=== PATIENT | male | born 1980 | race Caucasian/White ===

== ENCOUNTER 2018-02-18 20:50 | Observation (INO) | payer OTHER ==
--- NOTE | 2018-02-18 21:42 | XR ---
EXAMINATION TYPE: XR ribs LT w pa chest xray DATE OF EXAM: 02/18/2018 COMPARISON: 01/19/2012 HISTORY: Chest pain left rib pain TECHNIQUE: 5 views FINDINGS: Heart and mediastinum are normal. Lungs are clear of infiltrate. There is no pleural effusi on or pneumothorax. I see no displaced rib fracture. IMPRESSION: Normal chest. No rib fracture seen. Chest is stable compared to old exam.
[2018-02-18] MEDS ORDERED: MORPHINE SULFATE 4 MG/ML SYRINGE IVP STA (23:21)
[2018-02-18] MEDS ORDERED: ONDANSETRON 4 MG/2 ML VIAL IVP STA (23:21)
--- NOTE | 2018-02-19 00:26 | CT ---
EXAMINATION TYPE: CT abdomen pelvis w con DATE OF EXAM: 02/19/2018 COMPARISON: 10/04/2012 HISTORY: left sided abdominal pain after fall. CT DLP: 896.4 mGycm Automated exposure control for dose reduction was used. TECHNIQUE: Helical acquisition of images was performed from the lung bases through the pelvis. CONTRAST: Performed without Oral Contrast and with IV Contrast, patient injected with 100mL mL of Isovue 300. FINDINGS: The lung bases are clear of consolidation. There is no pleural effusion. There is no pericardial effu gabby. Heart size is normal. Liver spleen pancreas gallbladder appear normal. Bile ducts are not dilated. There is no adrenal mass . There is fluid accumulation on the posterior aspect of the lower pole left kidney that measures up to 1 cm in thickness. This has high attenuation consistent with perinephric hemorrhage. There is also s light decreased cortical enhancement of the lower pole of the left kidney. This is consistent with re nal contusion. There is no hydronephrosis. There is no retroperitoneal adenopathy. Ureters are not dilated. Bladder distends smoothly. There is no inguinal hernia. There is no free fluid in the pelvis. There is no intestinal wall thickening. The re are no dilated loops. Appendix appears normal. There is no sign of free air. There is no mesenteri c edema or adenopathy. The visualized ribs appear intact. Lumbar spine is intact. There is no jack gabby fracture. Bony pelvis is intact. IMPRESSION: THERE IS SMALL LEFT-SIDED PERINEPHRIC HEMATOMA WITH CORTICAL CONTUSION ON THE LOWER POLE OF THE LEFT KIDNEY. NO BONY FRACTURE SEEN. NO SIGN OF A RENAL FRACTURE.
[2018-02-19] MEDS ORDERED: SODIUM CHLORIDE 0.9% 1,000 ML IV ONE (00:30)
[2018-02-19] MEDS ORDERED: MORPHINE SULFATE 4 MG/ML SYRINGE IVP STA (01:01)
[2018-02-19 01:08] LABS: Basophils % (A) 0 %; Eosinophils # (A) 0.1 k/uL (0-0.7); Eosinophils % (A) 1 %; HCT 42.8 % (39.0-53.0); Lymphocytes % (A) 23 %; MCH 29.6 pg (25.0-35.0); MCHC 32.7 g/dL (31.0-37.0); MCV 90.6 fL (80.0-100.0); Mean Platelet Volume 7.7; Monocytes # (A) 0.5 k/uL (0-1.0); Monocytes % (A) 6 %; Neutrophils # (A) 5.9 k/uL (1.3-7.7); Neutrophils % (A) 68 %; Platelet Count 198 k/uL (150-450); RBC 4.72 m/uL (4.30-5.90); RDW 12.5 % (11.5-15.5); WBC 8.7 k/uL (3.8-10.6)
[2018-02-19 01:14] LABS: Appearance,Urine Clear (Clear); Bilirubin,Urine Negative (Negative); Blood,Urine Small (Negative); Color,Urine Light Yellow; Glucose,Urine (UA) Negative (Negative); Ketones,Urine Negative (Negative); Leukocyte Esterase,Urine Negative (Negative); Mucus,Urine Rare /hpf; Nitrite,Urine Negative (Negative); PH, Urine 6.5 (5.0-8.0); Protein,Urine Negative (Negative); RBC,Urine 9 /hpf (0-5); Specific Gravity,Urine 1.025 (1.001-1.035); Urobilinogen,Urine <2.0 mg/dL (<2.0); WBC,Urine 2 /hpf (0-5)
[2018-02-19 01:17] LABS: ALT 62 U/L (21-72); AST 39 U/L (17-59); Albumin 4.4 g/dL (3.5-5.0); Alkaline Phosphatase 71 U/L (38-126); Anion Gap 9 mmol/L; Blood Urea Nitrogen 22 mg/dL (9-20); Calcium 9.9 mg/dL (8.4-10.2); Carbon Dioxide 27 mmol/L (22-30); Chloride 103 mmol/L (98-107); Glucose 99 mg/dL (74-99); Potassium 4.8 mmol/L (3.5-5.1); Sodium 139 mmol/L (137-145); Total Bilirubin 0.6 mg/dL (0.2-1.3); Total Protein 7.3 g/dL (6.3-8.2)
[2018-02-19 01:18] LABS: Partial Thromboplastin Time 23.2 sec (22.0-30.0); Prothrombin Time 10.3 sec (9.0-12.0)
--- NOTE | 2018-02-19 01:43 | ED ---
Fall HPI - General Source: patient Mode of arrival: ambulatory <Anna Johnson - Last Filed: 02/19/18 01:57> <Jerel Teran - Last Filed: 02/19/18 08:10> - General Chief Complaint: Fall Stated Complaint: Fall, rib injury Time Seen by Provider: 02/18/18 22:22 - History of Present Illness Initial Comments: 37-year-old male patient presents to the emergency department today for evaluation of left-sided rib and abdominal pain. Patient states that about an hour prior to arrival he was jumping a fence when he fell striking his left side on the top of the fence posts. Patient states that since then he has been having pain to the left abdomen and flank. States his been having pain to the left lower ribs. Patient states it hurts to take a deep breath. Patient states that he has been feeling a cramping spasm type pain in the left side. He denies any cough or hemoptysis. Denies any hematuria, dysuria, urinary frequency, urinary urgency. He denies any abdominal pain, nausea, or vomiting. Denies hitting his head or losing consciousness. Denies any neck or back pain. Patient denies any headache, chest pain, dizziness, weakness, or difficulties with bowel movements or urination. (Anna Johnson) - Related Data Home Medications Medication Instructions Recorded Confirmed No Known Home Medications 02/18/18 02/19/18 Allergies Allergy/AdvReac Type Severity Reaction Status Date / Time Penicillins Allergy Rash/Hives Verified 02/19/18 03:37 Review of Systems ROS Other: All systems not noted in ROS Statement are negative. <Anna Johnson - Last Filed: 02/19/18 01:57> ROS Other: All systems not noted in ROS Statement are negative. <Jerel Teran - Last Filed: 02/19/18 08:10> ROS Statement: Those systems with pertinent positive or pertinent negative responses have been documented in the HPI. Past Medical History Past Medical History: No Reported History History of Any Multi-Drug Resistant Organisms: None Reported Additional Past Surgical History / Comment(s): right shoulder Past Psychological History: No Psychological Hx Reported Smoking Status: Current some day smoker Past Alcohol Use History: Occasional Past Drug Use History: None Reported <Anna Johnson - Last Filed: 02/19/18 01:57> General Exam Limitations: no limitations General appearance: alert, in no apparent distress, other (This is a well- developed, well-nourished adult male patient in no acute distress. Vital signs upon presentation are temperature 98.8F, pulse 70, respirations 18, blood pressure 146/95, pulse ox 100% on room air.) Eye exam: Present: normal appearance, PERRL, EOMI. Absent: scleral icterus, conjunctival injection, periorbital swelling ENT exam: Present: normal exam, normal oropharynx, mucous membranes moist Respiratory exam: Present: normal lung sounds bilaterally. Absent: respiratory distress, wheezes, rales, rhonchi, stridor Cardiovascular Exam: Present: regular rate, normal rhythm, normal heart sounds. Absent: systolic murmur, diastolic murmur, rubs, gallop, clicks GI/Abdominal exam: Present: soft, tenderness (Left upper quadrant tenderness. Left flank tenderness.), normal bowel sounds. Absent: distended, guarding, rebound, rigid Back exam: Present: normal inspection, CVA tenderness (L), other (Patient has superficial abrasion noted to the left flank, no ecchymosis.). Absent: CVA tenderness (R) Neurological exam: Present: alert, oriented X3, CN II-XII intact Psychiatric exam: Present: normal affect, normal mood Skin exam: Present: warm, dry, intact, normal color. Absent: rash <Anna Johnson - Last Filed: 02/19/18 01:57> Vital Signs 02/18/18 02/18/18 02/18/18 20:56 21:50 23:54 Temperature 98.8 F 98.7 F Pulse Rate 70 66 82 Respiratory 18 22 18 Rate Blood Pressure 146/95 144/119 139/89 O2 Sat by Pulse 100 98 96 Oximetry 02/19/18 02/19/18 02/19/18 01:00 01:13 03:23 Temperature 98.3 F Pulse Rate 73 78 Respiratory 16 16 Rate Blood Pressure 141/89 116/68 O2 Sat by Pulse 100 98 Oximetry Medical Decision Making - Lab Data Result diagrams: 02/19/18 00:52 02/19/18 00:52 - Radiology Data Radiology results: report reviewed, image reviewed <Anna Johnson - Last Filed: 02/19/18 01:57> - Lab Data Result diagrams: 02/19/18 00:52 02/19/18 00:52 <Jerel Teran - Last Filed: 02/19/18 08:10> - Medical Decision Making 37-year-old male patient presented to the residual department today for evaluation of left-sided rib and abdominal pain. Physical examination did reveal left CVA tenderness, left upper quadrant tenderness. Chest x-ray with rib studies was performed, no evidence of fracture rib, no acute cardiopulmonary process. CT abdomen and pelvis was obtained with contrast and did show evidence of a left-sided perinephric hematoma and cortical contusion. Patient will be admitted to trauma service and urology will be consulted for further evaluation. Pain management will be provided. Patient is aware of all results and agrees with this plan. (Anna Johnson) I saw this patient in conjunction with the physician compounding assistant. I performed independent history and physical exam. Agree with case management. (Jerel Teran) - Lab Data Lab Results 02/19/18 02/19/18 02/19/18 Range/Units 00:52 00:52 00:52 WBC 8.7 (3.8-10.6) k/uL RBC 4.72 (4.30-5.90) m/uL Hgb 14.0 (13.0-17.5) gm/dL Hct 42.8 (39.0-53.0) % MCV 90.6 (80.0-100.0) fL MCH 29.6 (25.0-35.0) pg MCHC 32.7 (31.0-37.0) g/dL RDW 12.5 (11.5-15.5) % Plt Count 198 (150-450) k/uL Neutrophils % 68 % Lymphocytes % 23 % Monocytes % 6 % Eosinophils % 1 % Basophils % 0 % Neutrophils # 5.9 (1.3-7.7) k/uL Lymphocytes # 2.0 (1.0-4.8) k/uL Monocytes # 0.5 (0-1.0) k/uL Eosinophils # 0.1 (0-0.7) k/uL Basophils # 0.0 (0-0.2) k/uL PT 10.3 (9.0-12.0) sec INR 1.0 (<1.2) APTT 23.2 (22.0-30.0) sec Sodium 139 (137-145) mmol/L Potassium 4.8 (3.5-5.1) mmol/L Chloride 103 (98-107) mmol/L Carbon Dioxide 27 (22-30) mmol/L Anion Gap 9 mmol/L BUN 22 H (9-20) mg/dL Creatinine 0.99 (0.66-1.25) mg/dL Est GFR (CKD-EPI)AfAm >90 (>60 ml/min/1.73 sqM) Est GFR (CKD-EPI)NonAf >90 (>60 ml/min/1.73 sqM) Glucose 99 (74-99) mg/dL Calcium 9.9 (8.4-10.2) mg/dL Total Bilirubin 0.6 (0.2-1.3) mg/dL AST 39 (17-59) U/L ALT 62 (21-72) U/L Alkaline Phosphatase 71 (38-126) U/L Total Protein 7.3 (6.3-8.2) g/dL Albumin 4.4 (3.5-5.0) g/dL Urine Color Urine Appearance (Clear) Urine pH (5.0-8.0) Ur Specific Hamill (1.001-1.035) Urine Protein (Negative) Urine Glucose (UA) (Negative) Urine Ketones (Negative) Urine Blood (Negative) Urine Nitrite (Negative) Urine Bilirubin (Negative) Urine Urobilinogen (<2.0) mg/dL Ur Leukocyte Esterase (Negative) Urine RBC (0-5) /hpf Urine WBC (0-5) /hpf Urine Mucus (None) /hpf 02/19/18 Range/Units 00:55 WBC (3.8-10.6) k/uL RBC (4.30-5.90) m/uL Hgb (13.0-17.5) gm/dL Hct (39.0-53.0) % MCV (80.0-100.0) fL MCH (25.0-35.0) pg MCHC (31.0-37.0) g/dL RDW (11.5-15.5) % Plt Count (150-450) k/uL Neutrophils % % Lymphocytes % % Monocytes % % Eosinophils % % Basophils % % Neutrophils # (1.3-7.7) k/uL Lymphocytes # (1.0-4.8) k/uL Monocytes # (0-1.0) k/uL Eosinophils # (0-0.7) k/uL Basophils # (0-0.2) k/uL PT (9.0-12.0) sec INR (<1.2) APTT (22.0-30.0) sec Sodium (137-145) mmol/L Potassium (3.5-5.1) mmol/L Chloride (98-107) mmol/L Carbon Dioxide (22-30) mmol/L Anion Gap mmol/L BUN (9-20) mg/dL Creatinine (0.66-1.25) mg/dL Est GFR (CKD-EPI)AfAm (>60 ml/min/1.73 sqM) Est GFR (CKD-EPI)NonAf (>60 ml/min/1.73 sqM) Glucose (74-99) mg/dL Calcium (8.4-10.2) mg/dL Total Bilirubin (0.2-1.3) mg/dL AST (17-59) U/L ALT (21-72) U/L Alkaline Phosphatase (38-126) U/L Total Protein (6.3-8.2) g/dL Albumin (3.5-5.0) g/dL Urine Color Light Yellow Urine Appearance Clear (Clear) Urine pH 6.5 (5.0-8.0) Ur Specific Hamill 1.025 (1.001-1.035) Urine Protein Negative (Negative) Urine Glucose (UA) Negative (Negative) Urine Ketones Negative (Negative) Urine Blood Small H (Negative) Urine Nitrite Negative (Negative) Urine Bilirubin Negative (Negative) Urine Urobilinogen <2.0 (<2.0) mg/dL Ur Leukocyte Esterase Negative (Negative) Urine RBC 9 H (0-5) /hpf Urine WBC 2 (0-5) /hpf Urine Mucus Rare H (None) /hpf - Radiology Data CT abdomen and pelvis with contrast was obtained. There is small left-sided perinephric hematoma with cortical contusion on the lower pole of the left kidney. No bony fracture seen. No sign of renal fracture. (Anna Johnson) Disposition Decision to Admit Reason: Admit from EC Decision Date: 02/19/18 Decision Time: 01:59 <Anna Johnson - Last Filed: 02/19/18 01:57> <Jerel Teran - Last Filed: 02/19/18 08:10> Clinical Impression: Traumatic perinephric hematoma of left kidney Disposition: ADMITTED IP TO THIS HOSP Condition: Serious
[2018-02-19] MEDS ORDERED: ONDANSETRON 4 MG/2 ML VIAL IVP PRN (01:52)
[2018-02-19] MEDS ORDERED: NALOXONE 0.4 MG/ML 1 ML VIAL IV PRN (01:52)
[2018-02-19] MEDS: SODIUM CHLORIDE 0.9% 1,000 ML IV SCH ×2 (02:31→20:24)
[2018-02-19 03:49] VITALS: BMI 27.1
[2018-02-19] MEDS: MORPHINE SULFATE 4 MG/ML SYRINGE IV PRN ×5 (03:56→21:53)
--- NOTE | 2018-02-19 16:45 | P.GSCN ---
History of Present Illness Consult date: 02/19/18 History of present illness: The patient is a pleasant 37-year-old quintero who is in his usual state of health. Last night he tripped and fell over a fence in his yard impaled his left upper quadrant. He developed significant pain and went to the emergency room. In the emergency room he had a computed tomography scan that showed a small perinephric hematoma. There is a small grade 1 fracture of the lower pole of the left kidney . The patient has no other urologic history. He has no history of bleeding. He has had no previous urinary tract infections. There is been no gross hematuria during this admission. Still having pain. He is able to eat. He is not nauseated. He is ambulated. Review of Systems All systems: negative - Genitourinary Reports as per HPI Past Medical History Past Medical History: No Reported History History of Any Multi-Drug Resistant Organisms: None Reported Additional Past Surgical History / Comment(s): right shoulder Past Anesthesia/Blood Transfusion Reactions: No Reported Reaction Smoking Status: Light tobacco smoker - Past Family History Father Additional Family Medical History / Comment(s): cirrhosis Mother Family Medical History: No Reported History Medications and Allergies Home Medications Medication Instructions Recorded Confirmed Type No Known Home Medications 02/18/18 02/19/18 History Allergies Allergy/AdvReac Type Severity Reaction Status Date / Time Penicillins Allergy Rash/Hives Verified 02/19/18 03:37 Surgical - Exam Vital Signs Temp Pulse Resp BP Pulse Ox 98.8 F 70 18 146/95 100 02/18/18 20:56 02/18/18 20:56 02/18/18 20:56 02/18/18 20:56 02/18/18 20:56 - General no distress - Eyes PERRL - ENT no hearing loss - Neck trachea midline - Respiratory normal expansion, normal respiratory effort - Cardiovascular Rhythm: regular - Abdomen There is bruising in the left upper quadrant and left flank. He is tender in that region but there is no rebound. - Genitourinary normal penis with no external lesions, testicles present - Integumentary no rash, no growths - Neurologic normal coordination, normal sensation - Musculoskeletal normal gait, normal posture - Psychiatric oriented to time, oriented to person, oriented to place, speech is normal, memory intact Results - Labs 02/19/18 00:52 02/19/18 00:52 Abnormal Lab Results - Last 24 Hours (Table) 02/19/18 02/19/18 Range/Units 00:52 00:55 BUN 22 H (9-20) mg/dL Urine Blood Small H (Negative) Urine RBC 9 H (0-5) /hpf Urine Mucus Rare H (None) /hpf Diabetes panel 02/19/18 Range/Units 00:52 Sodium 139 (137-145) mmol/L Potassium 4.8 (3.5-5.1) mmol/L Chloride 103 (98-107) mmol/L Carbon Dioxide 27 (22-30) mmol/L BUN 22 H (9-20) mg/dL Creatinine 0.99 (0.66-1.25) mg/dL Glucose 99 (74-99) mg/dL Calcium 9.9 (8.4-10.2) mg/dL AST 39 (17-59) U/L ALT 62 (21-72) U/L Alkaline Phosphatase 71 (38-126) U/L Total Protein 7.3 (6.3-8.2) g/dL Albumin 4.4 (3.5-5.0) g/dL Calcium panel 02/19/18 Range/Units 00:52 Calcium 9.9 (8.4-10.2) mg/dL Albumin 4.4 (3.5-5.0) g/dL Pituitary panel 02/19/18 Range/Units 00:52 Sodium 139 (137-145) mmol/L Potassium 4.8 (3.5-5.1) mmol/L Chloride 103 (98-107) mmol/L Carbon Dioxide 27 (22-30) mmol/L BUN 22 H (9-20) mg/dL Creatinine 0.99 (0.66-1.25) mg/dL Glucose 99 (74-99) mg/dL Calcium 9.9 (8.4-10.2) mg/dL Adrenal panel 02/19/18 Range/Units 00:52 Sodium 139 (137-145) mmol/L Potassium 4.8 (3.5-5.1) mmol/L Chloride 103 (98-107) mmol/L Carbon Dioxide 27 (22-30) mmol/L BUN 22 H (9-20) mg/dL Creatinine 0.99 (0.66-1.25) mg/dL Glucose 99 (74-99) mg/dL Calcium 9.9 (8.4-10.2) mg/dL Total Bilirubin 0.6 (0.2-1.3) mg/dL AST 39 (17-59) U/L ALT 62 (21-72) U/L Alkaline Phosphatase 71 (38-126) U/L Total Protein 7.3 (6.3-8.2) g/dL Albumin 4.4 (3.5-5.0) g/dL - Imaging CT scan - abdomen: report reviewed, image reviewed CT scan - pelvis: report reviewed, image reviewed Assessment and Plan Assessment: Impression: Traumatic minor fracture lower pole left kidney Recommendations. The patient's pain is under control he can ambulate eat and care for himself he can be discharged home. I like to see him in the office in one week. If his pain worsens I need to see him sooner is there might be concern for an expanding hematoma. The size of this fracture and hematoma it is extremely unlikely. This is been discussed with the patient and his .
[2018-02-19 23:48] VITALS: RESP 16
[2018-02-20] MEDS: MORPHINE SULFATE 4 MG/ML SYRINGE IV PRN ×3 (01:45→10:15)
[2018-02-20] MEDS: SODIUM CHLORIDE 0.9% 1,000 ML IV SCH (05:19)
[2018-02-20 07:50] VITALS: BP 121/79; PULSE 66; TEMP 97.5
--- NOTE | 2018-02-20 08:21 | P.GSHP ---
History of Present Illness H&P Date: 02/19/18 Chief Complaint: Flank pain This a 37-year-old male who fell after trying to jump over his fence gate. Patient describes jumping up onto the top of his gait and then falling onto the fence. Patient was worked up emergency room. He is found have a left perinephric hematoma and cortical contusion. He states he has significant pain on his left flank. He denies any other pain. Past Medical History Past Medical History: No Reported History History of Any Multi-Drug Resistant Organisms: None Reported Additional Past Surgical History / Comment(s): right shoulder Past Anesthesia/Blood Transfusion Reactions: No Reported Reaction Smoking Status: Light tobacco smoker - Past Family History Father Additional Family Medical History / Comment(s): cirrhosis Mother Family Medical History: No Reported History Medications and Allergies Home Medications Medication Instructions Recorded Confirmed Type No Known Home Medications 02/18/18 02/19/18 History Allergies Allergy/AdvReac Type Severity Reaction Status Date / Time Penicillins Allergy Rash/Hives Verified 02/19/18 03:37 Surgical - Exam Vital Signs Temp Pulse Resp BP Pulse Ox 98.8 F 70 18 146/95 100 02/18/18 20:56 02/18/18 20:56 02/18/18 20:56 02/18/18 20:56 02/18/18 20:56 - General well developed, no distress - Eyes PERRL - ENT normal pinna - Neck no masses - Respiratory normal expansion - Cardiovascular Rhythm: regular - Abdomen Abdomen: soft, non tender - Genitourinary Left flank pain Results - Labs 02/19/18 00:52 02/19/18 00:52 Assessment and Plan Assessment: Left perinephric hematoma with cortical condition. Patient received IV fluids and IV analgesia. We to be discharged home the next 24-48 hours.
[2018-02-20 10:09] LABS: Basophils % (A) 0 %; Eosinophils # (A) 0.1 k/uL (0-0.7); Eosinophils % (A) 2 %; HCT 38.2 % (39.0-53.0); HGB 13.1 gm/dL (13.0-17.5); Lymphocytes # (A) 1.5 k/uL (1.0-4.8); Lymphocytes % (A) 33 %; MCH 30.7 pg (25.0-35.0); MCHC 34.2 g/dL (31.0-37.0); MCV 89.7 fL (80.0-100.0); Mean Platelet Volume 6.8; Monocytes # (A) 0.3 k/uL (0-1.0); Monocytes % (A) 6 %; Neutrophils # (A) 2.6 k/uL (1.3-7.7); Neutrophils % (A) 58 %; Platelet Count 155 k/uL (150-450); RBC 4.26 m/uL (4.30-5.90); RDW 12.3 % (11.5-15.5); WBC 4.5 k/uL (3.8-10.6)
[2018-02-20 10:26] LABS: ALT 45 U/L (21-72); AST 26 U/L (17-59); Albumin 3.5 g/dL (3.5-5.0); Alkaline Phosphatase 59 U/L (38-126); Anion Gap 4 mmol/L; Blood Urea Nitrogen 14 mg/dL (9-20); Calcium 9.1 mg/dL (8.4-10.2); Carbon Dioxide 30 mmol/L (22-30); Chloride 105 mmol/L (98-107); Glucose 92 mg/dL (74-99); Potassium 4.3 mmol/L (3.5-5.1); Sodium 139 mmol/L (137-145); Total Bilirubin 0.4 mg/dL (0.2-1.3); Total Protein 6.1 g/dL (6.3-8.2)
--- NOTE | 2018-02-20 11:00 | P.CONS ---
History of Present Illness - Reason for Consult Consult date: 02/20/18 medical management Requesting physician: Isaac Guallpa - Chief Complaint left flank pain - History of Present Illness 37-year-old male with no prior significant medical history who presented to the emergency room with a chief complaint of left flank pain. The patient states he had placed "[employer]" on his front porch for his son for Cameron and he ran around to the back of the house where there is a wooden fence bungee corded together because it is broken. The patient states he was in a hurry so instead of on doing the bungee cords he decided to hop over the fence. He states there was some ice on the fence and he slipped and landed on top of one of the wooden fence peaks. The patient reported immediate left flank pain and presented to the emergency room for further evaluation. He denies shortness of breath. Denies chest pain or pressure. Denies nausea or vomiting. Denies hematuria. X-ray of left ribs were negative for fracture. No acute process visualized. CT of the abdomen and pelvis was completed revealing a small left-sided. Chronic hematoma with cortical contusion on the lower pole of the left kidney. No bony fracture seen. No sign of a renal fracture. The patient was admitted to the hospital under the care of Dr. Guallpa. Dr. Chowdhury was consulted for medical management. The patient was also evaluated by urology and cleared for discharge from a urological standpoint. REVIEW OF SYSTEMS: Those systems with pertinent positive or pertinent negative responses have been documented in the HPI PHYSICAL EXAM: GENERAL: This is a 37-year-old male in no apparent distress at the time of examination. Pleasant and cooperative. HEENT: Head is atraumatic, normocephalic. Pupils are equal, round, and reactive to light. Sclerae anicteric. Conjunctivae are clear. Mucus membranes of the mouth are moist. Neck is supple. RESPIRATORY: Clear to auscultation. No wheezes, rales, or rhonchi. No use of accessory muscles. Patient maintaining oxygen saturation greater than 92%. No chest wall tenderness is noted on palpation or with deep breathing. CARDIOVASCULAR: Regular rate and rhythm. S1 and S2 noted. No systolic or diastolic murmur auscultated. No JVD noted. No S3 or S4 noted. GASTROINTESTINAL: No distention noted. Abdomen soft and round. Normal active bowel sounds auscultated x 4 quadrants. INTEGUMENTARY: Ecchymosis noted to left flank region. No cyanosis. No jaundice. No rashes noted. No cellulitis noted. EXTREMITIES: 2+ peripheral pulses. No evidence of peripheral edema. No calf tenderness noted. NEUROLOGIC: Cranial nerves II-XII intact. PSYCHIATRIC: Awake, alert, and oriented X 3. Appropriate affect. Intact judgement and insight. ASSESSMENT: Left-sided perinephric hematoma with cortical contusion on the lower pole of left kidney, s/p trauma from jumping over a fence PLAN: Patient is stable for discharge home from a medical standpoint when cleared by admitting/attending physician. Recommend Tramadol for pain at the time of discharge. Patient encouraged to ice left flank region for pain control as well. He may follow up with Dr. Trenton villavicencio. Nurse practitioner note has been reviewed by physician. Signing provider agrees with the documented findings, assessment, and plan of care. Past Medical History Past Medical History: No Reported History History of Any Multi-Drug Resistant Organisms: None Reported Additional Past Surgical History / Comment(s): right shoulder Past Anesthesia/Blood Transfusion Reactions: No Reported Reaction Smoking Status: Light tobacco smoker - Past Family History Father Additional Family Medical History / Comment(s): cirrhosis Mother Family Medical History: No Reported History Medications and Allergies Home Medications Medication Instructions Recorded Confirmed Type No Known Home Medications 02/18/18 02/19/18 History Allergies Allergy/AdvReac Type Severity Reaction Status Date / Time Penicillins Allergy Rash/Hives Verified 02/19/18 03:37 Physical Exam Vitals: Vital Signs Temp Pulse Resp BP BP Pulse Ox 02/20/18 03:32 16 02/20/18 00:00 16 02/19/18 23:47 97.8 F 58 L 16 122/72 97 02/19/18 20:00 18 02/19/18 15:32 97.5 F L 55 L 18 116/74 96 02/19/18 08:45 17 02/19/18 07:45 97.5 F L 63 17 108/70 97 Intake and Output 02/19/18 02/20/18 02/20/18 22:59 06:59 14:59 Intake Total 236 Balance 236 Intake: Oral 236 Other: # Voids 1 1 Results CBC & Chem 7: 02/20/18 09:29 02/20/18 09:29
--- NOTE | 2018-02-20 11:57 | P.PN ---
Subjective Progress Note Date: 02/20/18 The patient is in the hospital for a left renal fracture, grade 1 after falling on a railing. Still having pain. Hemoglobin is relatively stable at 13.1. We' ll try him on oral pain medicine to see if he can be discharged home. he'll be seen in the office in one week. Objective - Vital Signs Vital signs: Vital Signs Temp 97.5 F L 02/20/18 07:35 Pulse 66 02/20/18 07:35 Resp 16 02/20/18 07:35 BP 121/79 02/20/18 07:35 Pulse Ox 96 02/20/18 07:35 Intake & Output 02/19/18 02/20/18 02/20/18 18:59 06:59 18:59 Intake Total 676 240 Balance 676 240 Intake: Oral 676 240 Other: Voiding Method Toilet # Voids 1 1 - Labs CBC & Chem 7: 02/20/18 09:29 02/20/18 09:29 Labs: Abnormal Lab Results - Last 24 Hours (Table) 02/20/18 02/20/18 Range/Units 09:29 09:29 RBC 4.26 L (4.30-5.90) m/uL Hct 38.2 L (39.0-53.0) % Total Protein 6.1 L (6.3-8.2) g/dL
--- NOTE | 2018-02-20 12:10 | P.DS ---
Providers Date of admission: 02/19/18 01:59 Expected date of discharge: 02/20/18 Attending physician: Isaac Guallpa Consults: 02/19/18 01:54 Consult Physician Routine Consulting Provider: Mayank Vega Consult Reason/Comments: Left perinephric hematoma Do you want consulting provider notified?: Yes 02/19/18 08:52 Consult Physician Urgent Consulting Provider: Jean Carlos Chowdhury Consult Reason/Comments: med mtg Do you want consulting provider notified?: Yes Primary care physician: Jean Carlos Chowdhury [facility] Course: 47-year-old male presenting to the emergency room on the day of admission with a chief complaint of developing left-sided rib abdominal pain patient reported about an hour prior to arrival he was attempting to jump a fence when he struck the left side of the fence post. Patient stated after the incident he continued to develop intractable left abdominal and flank pain. Patient stated he had pain in the left lower ribs. Her to take a deep breath. Described as a cramping sensation in the left side. No hemoptysis no cough. No hematuria no difficulty in urinating. No nausea no vomiting. Patient denied losing consciousness. In the emergency room computed tomography scan of the abdomen pelvis was obtained with contrast showed evidence of left-sided perinephic hematoma and cortical contusion. Urology Dr. Zachary linton was requested urology indicated there was a small grade 1 fracture of the left kidney lower pole patient gives no history of prior UTIs no gross hematuria during this admission. Patient continues to report having left flank pain control with the current analgesics was able to ambulate was able to eat has no urological past medical history from medicine and urology indicated patient was appropriate to be discharged Impression discharge diagnosis Prior to admission left-sided rib abdominal pain with left flank pain due to trauma from hitting the left side on a fence post resulting in Left perinephric hematoma with cortical condition Traumatic small grade 1 fracture left lower pole of the kidney after hitting a fence post on the left side The above impression and plan of care have been discussed and directed by signing physician. Dina Yost nurse practitioner acting as scribe for signing physician. Patient Condition at Discharge: Serious Plan - Discharge Summary New Discharge Prescriptions: New HYDROcodone/APAP 7.5-325MG [[place] 7.5-325] 1 tab PO Q4H PRN 3 Days #18 tab PRN Reason: Moderate Breakthrough Pain Discharge Medication List HYDROcodone/APAP 7.5-325MG [[place] 7.5-325] 1 tab PO Q4H PRN 3 Days #18 tab 02/20 [Rx] Follow up Appointment(s)/Referral(s): Jean Carlos Chowdhury DO [Primary Care Provider] - 1 Week Mayank Vega MD [STAFF PHYSICIAN] - 1 Week Isaac Guallpa MD [STAFF PHYSICIAN] - 1 Week Activity/Diet/Wound Care/Special Instructions: Return to the emergency room if the pain in the left side increases If constipation occurs while taking [place] use [id number] stool softeners as needed Discharge Disposition: HOME SELF-CARE
== END 2018-02-20 16:20 | disposition home or self-care (01) ==
LOC: EC 20:50 → 1SOBS 02-19 01:59
PROVIDERS: ADMIT Surgery; ATTEND Surgery
DX: S37.012A Minor contusion of left kidney, initial encounter (principal); F17.200 Nicotine dependence, unspecified, uncomplicated; R07.81 Pleurodynia; Z88.0 Allergy status to penicillin; Z83.79 Family history of other diseases of the digestive system; W18.09XA Striking against other object with subsequent fall, initial encounter; Y92.007 Garden or yard of unspecified non-institutional (private) residence as the place of occurrence of the external cause
CPT/HCPCS: 96376 ×3; 96361; 96374; 96375; 99285; 36415; 80053 ×2; 85025 ×2; 85610; 85730; 81001; 71101; 74177; G0378 ×2; J2270 ×3; J2405; Q9967

== ENCOUNTER 2018-09-30 13:37 | Day surgery (SDC) | payer BC, OTHER ==
--- NOTE | 2018-09-29 09:48 | HP ---
HISTORY AND PHYSICAL REASON FOR ADMISSION: Surgery 09/30/2018 Wallace Laird is a 38-year-old patient seen with progressive right shoulder pain. We discussed treatment options with him. He elected to proceed with right shoulder arthroscopy. Consent was obtained. PAST MEDICAL HISTORY: Noncontributory. PAST SURGICAL HISTORY: Shoulder arthroscopy. DAILY MEDICATIONS: None. ALLERGIES: PENICILLIN. SOCIAL HISTORY: Smokes cigarettes. PHYSICAL EXAMINATION: Right shoulder: Flexion is 100 degrees, abduction is 90 degrees, external rotation 20 degrees with some weakness, tenderness along the anterior lateral acromion rotator cuff insertion site. Impingement sign positive 90 degrees. Distal neurovascular exam is intact. RADIOGRAPHS: Right shoulder radiographs demonstrated a type 2 anterior acromion, evidence for acromioclavicular osteoarthritis and cystic changes of the tuberosity. IMPRESSION: 1. Right shoulder impingement, possible rotator cuff tear. 2. Right shoulder acromioclavicular joint osteoarthritis. 3. Right shoulder glenohumeral joint osteoarthritis. PLAN: Right shoulder arthroscopy with subacromial decompression, possible arthroscopic rotator cuff repair, probable Brian procedure and debridement. Surgery scheduled for 09/30/2018. MMODL / IJN: [id number] /
[~2018-09-30 13:37] MED LIST: DEXAMETHASONE SOD PHOSPHATE 10 MG/ML 1 ML VIAL IV ONE; LACTATED RINGERS 1,000 ML IV SCH; LIDOCAINE 1% 20 ML VIAL (10MG/ML) FOR IV START INTRADERMA PRN; ONDANSETRON 4 MG/2 ML VIAL IVP ONE; ceFAZolin IN SWFI 2 GM/20 ML SYRINGE IVP ONE
[2018-09-30 13:58] VITALS: TEMP 98
[2018-09-30] MEDS ORDERED: MIDAZOLAM (PF) 2 MG/2 ML VIAL IV ONE (14:09)
[2018-09-30] MEDS ORDERED: PROPOFOL 10 MG/ML 20 ML VIAL IV ONE (15:28)
[2018-09-30] MEDS ORDERED: SUCCINYLCHOLINE CHLORIDE 100 MG/5 ML SYR IV ONE (15:28)
[2018-09-30] MEDS ORDERED: MIDAZOLAM 2 MG/2 ML VIAL ONE (15:28)
[2018-09-30] MEDS ORDERED: fentaNYL (PF) 50 MCG/ML 2 ML AMP ONE (15:28)
[2018-09-30] MEDS ORDERED: ROPIVACAINE 5 MG/ML 30 ML VIAL ONE (15:28)
[2018-09-30] MEDS ORDERED: LIDOCAINE 1% INJ 10MG/ML (20 ML MDV) ONE (15:28)
[2018-09-30] MEDS ORDERED: DEXAMETHASONE SOD PHOSPHATE 4 MG/ML 1 ML VIAL ONE (15:28)
--- NOTE | 2018-09-30 17:05 | P.OP ---
Date of Procedure: 09/30/18 Preoperative Diagnosis: Right shoulder impingement Postoperative Diagnosis: 1. Right shoulder impingement 2. Right shoulder acromioclavicular joint osteoarthritis 3. Right shoulder partial long head biceps tendon tear 4. Right shoulder superficial rotator cuff tear 5. 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 Right shoulder labral tear Procedure(s) Performed: 1. Right shoulder arthroscopic subacromial decompression 2. Right shoulder arthroscopic Brian procedure 3. Right shoulder arthroscopic biceps tenotomy 4. Right shoulder arthroscopic chondroplasty humeral head 5. Right shoulder arthroscopic debridement superficial rotator cuff tear 6. Right shoulder arthroscopic debridement labral tear Anesthesia: FOLR Surgeon: Vinicius Lewis Estimated Blood Loss (ml): 10 Pathology: none sent Condition: stable Disposition: PACU Indications for Procedure: 38-year-old patient seen with progressive right shoulder pain. After having treatment options discussed, he elected to proceed with arthroscopy. Operative Findings: See description of procedure Description of Procedure: Patient underwent an interscalene block by department of anesthesia for postoperative pain management. The patient was then taken to the operative suite. The patient underwent a general anesthetic by the department of anesthesia. The patient was placed into a lateral position and secured. There was appropriate padding of the bony prominence. Right shoulder was then prepped and draped in normal sterile orthopedic fashion. We placed the extremity in 10 pounds of longitudinal traction. A posterior incision was now made for a posterior working portal site. The trocar and cannula were inserted into the glenohumeral joint. Arthroscopy was initiated. Spinal needle was now inserted anteriorly, to ascertain the anterior working portal site. An incision was now made in that area, a trocar was inserted followed by a probe. There was grade 3/4 chondromalacia changes throughout the humeral head and glenoid fossa. There were osteochondral tears present on both sides as well. There was superficial tearing of the labrum superiorly and posteriorly. The anterior labrum was absent. Long head biceps tendon appeared hyperemic was some partial tearing. The rotator cuff tendon appeared intact. I performed a arthroscopic biceps tenotomy. I debrided the superficial labral tears down to stable tissue. I now performed a chondroplasty of the humeral head and glenoid fossa getting down to stable osteochondral tissue. There appeared to be grade 4 chondromalacia changes on the humeral head side and grade 3-4 chondromalacia on the glenoid fossa side. This was significant given this patient's age. The residual labrum was stable. At this point instruments removed from glenohumeral joint. Utilizing the posterior working portal site, the trocar and cannula were inserted into the subacromial space. Arthroscopy initiated. I made an incision 2 fingerbreadths lateral to the acromion. I introduced my trocar followed by my ArthroCare ablator. I now began ablating thick subacromial bursal tissue, which exposed the undersurface of the anterior acromion. There was diminished subacromial space. There was a very prominent anterior acromion. A motorized bur was introduced and a subacromial decompression was performed. I also excised some osteophytes off the inferior aspect of the distal clavicle. The AC joint was visualized and noted to be fairly arthritic. The motorized bur was introduced in the anterior portal site and a Brian procedure was performed without difficulty, decompressing the AC joint nicely. I turned my attention to the rotator cuff. There was some superficial tearing of the distal supraspinatus area. I debrided that with a motorized shaver getting down to stable tendon tissue. There was probed and there was no evidence for any full-thickness perforation rotator cuff tendon tear. I injected 1 mL Renue intra-articular. Instruments now removed from the portal sites. All portal sites were approximated with nylon suture. Sterile dressings were applied followed by a shoulder sling. The patient was awakened, transferred to a bed, and taken to recovery in stable condition.
[2018-09-30 18:11] VITALS: RESP 18
[2018-09-30 18:41] VITALS: PULSE 66
[2018-09-30 18:52] VITALS: BP 129/82
--- NOTE | 2018-10-01 10:48 | P.ANPRN ---
Procedure Note - Anesthesia - Nerve Block Performed Right Interscalene Single Time Out Performed: Yes Date of Procedure: 09/30/18 Procedure Start Time: 14:09 Procedure Stop Time: 14:14 Location of Patient Procedure: PreOp Indication: Acute Post-Operative Pain, Requested by physician Sedation Type: Sedate with meaningful contact maintained Preparation: Sterile Prep Position: Supine Needle Types: Pajunk Needle Gauge: 21 Technique: Ultrasound (ropi .5% 30cc plus dexamethasone 4mg) Blood Aspirated: No Pain Paresthesia on Injection Noted: No Resistance on Injection: Normal Events: Uneventful and Well Tolerated
== END 2018-09-30 19:05 | disposition home or self-care (01) ==
LOC: OR 13:37
PROVIDERS: ATTEND Orthopaedic Surgery
DX: M75.101 Unspecified rotator cuff tear or rupture of right shoulder, not specified as traumatic (principal); M19.011 Primary osteoarthritis, right shoulder; M75.41 Impingement syndrome of right shoulder; M94.211 Chondromalacia, right shoulder; S46.111A Strain of muscle, fascia and tendon of long head of biceps, right arm, initial encounter; S43.431A Superior glenoid labrum lesion of right shoulder, initial encounter; M25.711 Osteophyte, right shoulder; X58.XXXA Exposure to other specified factors, initial encounter; K21.9 Gastro-esophageal reflux disease without esophagitis; F17.210 Nicotine dependence, cigarettes, uncomplicated; Z88.0 Allergy status to penicillin
CPT/HCPCS: 64415; 29823; 29824; C1765; J2250 ×2; J1100 ×2; J2405; J2001; J3010; J2795; J0330; J2704; J0690

== ENCOUNTER 2021-05-24 07:22 | Emergency (ER) | payer BC, OTHER ==
[2021-05-24 08:14] LABS: Basophils % (A) 0 %; Eosinophils # (A) 0.1 k/uL (0-0.7); Eosinophils % (A) 1 %; HCT 43.4 % (39.0-53.0); HGB 14.6 gm/dL (13.0-17.5); Lymphocytes # (A) 1.7 k/uL (1.0-4.8); Lymphocytes % (A) 34 %; MCH 30.7 pg (25.0-35.0); MCHC 33.6 g/dL (31.0-37.0); MCV 91.6 fL (80.0-100.0); Mean Platelet Volume 7.5; Monocytes # (A) 0.3 k/uL (0-1.0); Monocytes % (A) 6 %; Neutrophils # (A) 2.8 k/uL (1.3-7.7); Neutrophils % (A) 57 %; Platelet Count 205 k/uL (150-450); RBC 4.74 m/uL (4.30-5.90); RDW 12.5 % (11.5-15.5); WBC 4.9 k/uL (3.8-10.6)
[2021-05-24] MEDS ORDERED: ASPIRIN 81 MG PO STA (08:17)
[2021-05-24 08:22] LABS: INR 0.9 (<1.2); Partial Thromboplastin Time 24.3 sec (22.0-30.0); Prothrombin Time 10.3 sec (9.0-12.0)
[2021-05-24 08:26] VITALS: RESP 16
[2021-05-24 08:32] LABS: ALT 30 U/L (4-49); AST 26 U/L (17-59); African American GFR (CKD) >90 (>60 ml/min/1.73 sqM); Albumin 4.2 g/dL (3.5-5.0); Alkaline Phosphatase 71 U/L (38-126); Anion Gap 6 mmol/L; Blood Urea Nitrogen 19 mg/dL (9-20); Calcium 8.9 mg/dL (8.4-10.2); Carbon Dioxide 25 mmol/L (22-30); Chloride 107 mmol/L (98-107); Glucose 104 mg/dL (74-99); Non-African American GFR(CKD) 89 (>60 ml/min/1.73 sqM); Potassium 4.5 mmol/L (3.5-5.1); Sodium 138 mmol/L (137-145); Total Bilirubin 0.6 mg/dL (0.2-1.3); Total Protein 7.2 g/dL (6.3-8.2)
--- NOTE | 2021-05-24 08:34 | ED ---
General Adult HPI - General Chief complaint: Chest Pain Stated complaint: chest pain Time Seen by Provider: 05/24/21 07:25 Source: patient, RN notes reviewed, old records reviewed Mode of arrival: ambulatory Limitations: no limitations - History of Present Illness Initial comments: This is a 40-year-old male who presents emergency Department complaining of chest pain intermittently over the last month and a half or so. Patient states is on the left side of his chest up near the armpit area radiates down his arm and he also become short of breath when this occurs. Patient states it lasts for about an hour and a half almost every time. Patient states it does not seem to be elicited by any movement of his neck or arm. Patient states she's occas ional smoker does not have any diabetes high blood pressure high cholesterol. Patient states his grandfather did have heart disease. Patient states it does not appear to occur when he exerts himself it usually occurs at home. Patient denies any fever chills per patient denies any swelling to the legs or calf tenderness. Patient states it lasts about an hour and a half this morning and is currently gone. - Related Data Home Medications Medication Instructions Recorded Confirmed No Known Home Medications 05/24/21 05/24/21 Allergies Allergy/AdvReac Type Severity Reaction Status Date / Time Penicillins Allergy Rash/Hives Verified 05/24/21 08:50 Review of Systems ROS Statement: Those systems with pertinent positive or pertinent negative responses have been documented in the HPI. ROS Other: All systems not noted in ROS Statement are negative. Past Medical History Past Medical History: GERD/Reflux History of Any Multi-Drug Resistant Organisms: None Reported Past Surgical History: Orthopedic Surgery Additional Past Surgical History / Comment(s): right shoulder Past Anesthesia/Blood Transfusion Reactions: No Reported Reaction Past Psychological History: No Psychological Hx Reported Smoking Status: Current some day smoker Past Alcohol Use History: Occasional Past Drug Use History: None Reported - Past Family History Mother Family Medical History: Cancer Additional Family Medical History / Comment(s): melanoma General Exam - General Exam Comments Initial Comments: GENERAL: Patient is well-developed and well-nourished. Patient is nontoxic and well-hy drated and is in no acute distress. ENT: Neck is soft and supple. No significant lymphadenopathy is noted. Oropharynx is clear. Moist mucous membranes. Neck has full range of motion without elici ting any pain. EYES: The sclera were anicteric and conjunctiva were pink and moist. Extraocular movements were intact and pupils were equal round and reactive to light. Eyelids were unremarkable. PULMONARY: Unlabored respirations. Good breath sounds bilaterally. No audible rales rhonchi or wheezing was noted. CARDIOVASCULAR: There is a regular rate and rhythm without any murmurs gallops or rubs. ABDOMEN: Soft and nontender with normal bowel sounds. SKIN: Skin is clear with no lesions or rashes and otherwise unremarkable. NEUROLOGIC: Patient is alert and oriented x3. Cranial nerves II through XII are grossly intact. Motor and sensory are also intact. Normal speech, volume and content. Symmetrical smile. MUSCULOSKELETAL: Normal extremities with adequate strength and full range of motion. No lower extremity swelling or edema. No calf tenderness. LYMPHATICS: No significant lymphadenopathy is noted PSYCHIATRIC: Normal psychiatric evaluation. Limitations: no limitations Course Vital Signs 05/24/21 05/24/21 05/24/21 07:22 08:25 09:33 Temperature 97 F L Pulse Rate 72 71 60 Respiratory 18 16 16 Rate Blood Pressure 156/97 118/64 119/86 O2 Sat by Pulse 99 99 99 Oximetry Medical Decision Making - Medical Decision Making EKG shows sinus rhythm at 62 bpm [place] interval 70 QRS 106 QTC is 412 QTC is 47. Patient's EKG shows no ST segment elevation or depression. Chest x-ray shows no acute abnormality. I taken and reevaluated the patient he never had any chest pain while in the emergency department. I spoke with Dr. Trenton Chowdhury was in agreement with admitting him however the patient did not want to be admitted and he wanted to follow-up with Dr. kaplan and outpatient. Patient stated he would call Dr. Chowdhury on the way home and set up an appointment. Patient also stated that if he had any more pain or shortness of breath he returns emergency department immediately. Patient's was in the room from his conversations. - Lab Data Result diagrams: 05/24/21 07:55 05/24/21 07:55 Lab Results 05/24/21 05/24/21 05/24/21 Range/Units 07:55 07:55 07:55 WBC 4.9 (3.8-10.6) k/uL RBC 4.74 (4.30-5.90) m/uL Hgb 14.6 (13.0-17.5) gm/dL Hct 43.4 (39.0-53.0) % MCV 91.6 (80.0-100.0) fL MCH 30.7 (25.0-35.0) pg MCHC 33.6 (31.0-37.0) g/dL RDW 12.5 (11.5-15.5) % Plt Count 205 (150-450) k/uL MPV 7.5 Neutrophils % 57 % Lymphocytes % 34 % Monocytes % 6 % Eosinophils % 1 % Basophils % 0 % Neutrophils # 2.8 (1.3-7.7) k/uL Lymphocytes # 1.7 (1.0-4.8) k/uL Monocytes # 0.3 (0-1.0) k/uL Eosinophils # 0.1 (0-0.7) k/uL Basophils # 0.0 (0-0.2) k/uL PT 10.3 (9.0-12.0) sec INR 0.9 (<1.2) APTT 24.3 (22.0-30.0) sec D-Dimer 0.31 (<0.60) mg/L FEU Sodium 138 (137-145) mmol/L Potassium 4.5 (3.5-5.1) mmol/L Chloride 107 (98-107) mmol/L Carbon Dioxide 25 (22-30) mmol/L Anion Gap 6 mmol/L BUN 19 (9-20) mg/dL Creatinine 1.04 (0.66-1.25) mg/dL Est GFR (CKD-EPI)AfAm >90 (>60 ml/min/1.73 sqM) Est GFR (CKD-EPI)NonAf 89 (>60 ml/min/1.73 sqM) Glucose 104 H (74-99) mg/dL Calcium 8.9 (8.4-10.2) mg/dL Total Bilirubin 0.6 (0.2-1.3) mg/dL AST 26 (17-59) U/L ALT 30 (4-49) U/L Alkaline Phosphatase 71 (38-126) U/L Troponin I (0.000-0.034) ng/mL Total Protein 7.2 (6.3-8.2) g/dL Albumin 4.2 (3.5-5.0) g/dL 05/24/21 Range/Units 07:55 WBC (3.8-10.6) k/uL RBC (4.30-5.90) m/uL Hgb (13.0-17.5) gm/dL Hct (39.0-53.0) % MCV (80.0-100.0) fL MCH (25.0-35.0) pg MCHC (31.0-37.0) g/dL RDW (11.5-15.5) % Plt Count (150-450) k/uL MPV Neutrophils % % Lymphocytes % % Monocytes % % Eosinophils % % Basophils % % Neutrophils # (1.3-7.7) k/uL Lymphocytes # (1.0-4.8) k/uL Monocytes # (0-1.0) k/uL Eosinophils # (0-0.7) k/uL Basophils # (0-0.2) k/uL PT (9.0-12.0) sec INR (<1.2) APTT (22.0-30.0) sec D-Dimer (<0.60) mg/L FEU Sodium (137-145) mmol/L Potassium (3.5-5.1) mmol/L Chloride (98-107) mmol/L Carbon Dioxide (22-30) mmol/L Anion Gap mmol/L BUN (9-20) mg/dL Creatinine (0.66-1.25) mg/dL Est GFR (CKD-EPI)AfAm (>60 ml/min/1.73 sqM) Est GFR (CKD-EPI)NonAf (>60 ml/min/1.73 sqM) Glucose (74-99) mg/dL Calcium (8.4-10.2) mg/dL Total Bilirubin (0.2-1.3) mg/dL AST (17-59) U/L ALT (4-49) U/L Alkaline Phosphatase (38-126) U/L Troponin I <0.012 (0.000-0.034) ng/mL Total Protein (6.3-8.2) g/dL Albumin (3.5-5.0) g/dL Disposition Clinical Impression: Chest pain Disposition: HOME SELF-CARE Instructions (If sedation given, give patient instructions): Chest Pain (ED) Is patient prescribed a controlled substance at d/c from ED?: No Referrals: Jean Carlos Chowdhury DO [Primary Care Provider] - 1-2 days Time of Disposition: 10:38
--- NOTE | 2021-05-24 09:13 | XR ---
EXAMINATION TYPE: XR chest 2V DATE OF EXAM: 05/24/2021 COMPARISON: Chest x-ray February 18, 2018 HISTORY: Occasional chest pain into left arm. TECHNIQUE: Frontal and lateral views of the chest are obtained. FINDINGS: There is no suspicious new focal air space opacity, pleural effusion, or pneumothorax seen . The cardiac silhouette size remains within normal limits. The osseous structures are intact. IMPRESSION: No acute process. No significant change from prior.
--- NOTE | 2021-05-24 09:13 | XR ---
Spine HISTORY: Radiculopathy 5 views of the cervical spine No comparisons Spondylosis is present at multiple levels. Loss of disc height C3-C4. Prevertebral soft tissues are n ormal. Cervical vertebral bodies show preserved height, alignment, and bone mineralization. There is foraminal encroachment on the left at C4, C6-7 and on the right at C3-4 and C6-7. Odontoid view is li mited. IMPRESSION: Degenerative disc disease, cervical MRI may be of benefit
[2021-05-24 09:36] VITALS: PULSE 60
[2021-05-24 10:56] VITALS: BP 118/91; TEMP 97.1
== END 2021-05-24 11:00 | disposition home or self-care (01) ==
LOC: EC 07:22
DX: R07.89 Other chest pain (principal); K21.9 Gastro-esophageal reflux disease without esophagitis; F17.200 Nicotine dependence, unspecified, uncomplicated
CPT/HCPCS: 36415; 71046; 72050; 80053; 84484; 85025; 85379; 85610; 85730; 93005; 99285

== ENCOUNTER 2021-11-03 12:16 | Day surgery (SDC) | payer OTHER ==
[2021-11-01 16:04] VITALS: BMI 29.1
--- NOTE | 2021-11-02 23:17 | HP ---
HISTORY AND PHYSICAL DATE OF ANTICIPATED SURGERY: 11/03/2021 HISTORY: Wallace Laird is a 41-year-old gentleman seen with a symptomatic right knee prepatellar bursitis. We discussed options. He would like to proceed with right knee prepatellar bursectomy. Consent was obtained. PAST MEDICAL HISTORY: Noncontributory. SURGICAL HISTORY: Shoulder arthroscopy. DAILY MEDICATIONS: None. ALLERGIES: Penicillin. SOCIAL HISTORY: He smokes cigarettes. PHYSICAL EXAMINATION: EXTREMITIES: Evaluation of right knee, there is an area of prepatellar bursal swelling measures 3 x 3 cm along the anterior aspect of the right knee, which is tender to palpation without evidence for any erythema or infective processes. His knee range of motion is 0 to 13, with no pain. His ligaments are stable. His distal neurovascular exam is intact. RADIOGRAPHS: Radiographs of the right knee reveal some osteoarthritic changes. IMPRESSION: Right knee symptomatic prepatellar bursitis. PLAN: Right knee bursectomy. MMODL / IJN: [id number] /
[~2021-11-03 12:16] MED LIST changes: -DEXAMETHASONE SOD PHOSPHATE 10 MG/ML 1 ML VIAL IV ONE; +DEXAMETHASONE SOD PHOSPHATE 4 MG/ML 1 ML VIAL IV ONE; +LIDOCAINE 1% (10MG/ML) FOR IV START INTRADERMA PRN; -LIDOCAINE 1% 20 ML VIAL (10MG/ML) FOR IV START INTRADERMA PRN; +ONDANSETRON 4 MG/2 ML VIAL IVP PRN; -ceFAZolin IN SWFI 2 GM/20 ML SYRINGE IVP ONE
[2021-11-03 14:11] LABS: Basophils % (A) 0 %; Eosinophils # (A) 0.1 k/uL (0-0.7); Eosinophils % (A) 2 %; HCT 44.3 % (39.0-53.0); HGB 15.1 gm/dL (13.0-17.5); Lymphocytes # (A) 2.2 k/uL (1.0-4.8); Lymphocytes % (A) 40 %; MCH 31.1 pg (25.0-35.0); MCV 91.5 fL (80.0-100.0); Mean Platelet Volume 7.5; Monocytes # (A) 0.3 k/uL (0-1.0); Monocytes % (A) 5 %; Neutrophils # (A) 2.9 k/uL (1.3-7.7); Neutrophils % (A) 52 %; Platelet Count 223 k/uL (150-450); RBC 4.84 m/uL (4.30-5.90); RDW 13.2 % (11.5-15.5); WBC 5.6 k/uL (3.8-10.6)
[2021-11-03 14:20] LABS: Potassium 4.1 mmol/L (3.5-5.1)
[2021-11-03] MEDS ORDERED: PROPOFOL 10 MG/ML 20 ML VIAL IV ONE (14:59)
[2021-11-03] MEDS ORDERED: HYDROmorphone (PF) 1 MG/ML ONE (14:59)
[2021-11-03] MEDS ORDERED: LIDOCAINE 2% INJ 20 MG/ML (2 ML VIAL) ONE (14:59)
[2021-11-03] MEDS ORDERED: MIDAZOLAM 2 MG/2 ML VIAL ONE (14:59)
[2021-11-03] MEDS ORDERED: fentaNYL (PF) 50 MCG/ML 2 ML AMP ONE (14:59)
[2021-11-03] MEDS ORDERED: KETOROLAC 15 MG/ML 1 ML VIAL ONE (14:59)
[2021-11-03] MEDS ORDERED: ceFAZolin 1,000 MG in SODIUM CHLORIDE 0.9% 1,000 ML IRRIGATION ONE (15:17)
--- NOTE | 2021-11-03 15:54 | P.OP ---
Date of Procedure: 11/03/21 Preoperative Diagnosis: Symptomatic right knee prepatellar bursitis Postoperative Diagnosis: Same Procedure(s) Performed: Right knee prepatellar bursectomy Anesthesia: FLOR, local Surgeon: Vinicius Lewis Research Manager #1: Tom Gaines Estimated Blood Loss (ml): 8 Pathology: none sent Condition: stable Disposition: PACU Indications for Procedure: 41-year-old gentleman seen with symptomatic right knee prepatellar bursitis. We discussed treatment options. He elected to proceed with right knee prepatellar bursectomy. Consent was obtained. Operative Findings: See description of procedure Description of Procedure: Patient was taken to the operative suite. Patient received preoperative IV antibiotics. Patient underwent a general anesthetic by the department of anesthesia. A well-padded tourniquet was placed proximal right thigh. The right lower extremity was prepped and draped in the normal sterile orthopedic fashion. Extremity was elevated and tourniquet insufflated to 300. I now made an incision measuring approximately 3 cm over the area of the large prepatellar bursa. With the assistance of Parrish MOJICA carefully retracting I was able to dissect out this large prepatellar bursa. I did obtain deep cultures. I explored the wound and I noted that all the abnormal bursal tissue. The probe and excised. I used electrocautery to help with hemostasis. The wound was again explored and I noted complete excision of all of the abnormal-appearing bursal tissue. We irrigated copiously with pulse lavage mechanical irrigation. With the assistance of Parrish MOJICA. The subcutaneous soft tissues tacking it right down to the deep tissue utilizing 2-0 Vicryl. The skin was approximated with a running subcu trigger suture augmented by skin was. The area was infiltrated with Marcaine for postoperative pain management. Sterile dressings were applied. The tourniquet was released with good capillary refill noted. Additional sterile dressings were applied. The patient was awakened and transferred to recovery stable satisfactory condition. Parrish MOJICA assisted with the procedure.
[2021-11-03 16:17] VITALS: TEMP 97
[2021-11-03] MEDS: HYDROmorphone 0.5 MG/0.5 ML SYRINGE IVP PRN ×3 (16:20→16:52)
[2021-11-03 16:22] VITALS: RESP 16
[2021-11-03 17:18] VITALS: BP 127/76; PULSE 49
== END 2021-11-03 17:31 | disposition home or self-care (01) ==
LOC: OR 12:16
PROVIDERS: ATTEND Orthopaedic Surgery
DX: M70.41 Prepatellar bursitis, right knee (principal); Z88.0 Allergy status to penicillin; F17.200 Nicotine dependence, unspecified, uncomplicated; F41.9 Anxiety disorder, unspecified; K21.9 Gastro-esophageal reflux disease without esophagitis; Z79.899 Other long term (current) drug therapy; Z80.1 Family history of malignant neoplasm of trachea, bronchus and lung; Z80.8 Family history of malignant neoplasm of other organs or systems
CPT/HCPCS: 80051; 85025; 87070; 87205; 87075; 87077; 87186; 27340; J2250; J1100; J0690 ×2; J2405; J3010; J1170 ×2; J1885; J2704; J2001; 88305